=== PATIENT | female | born 1980 | race Caucasian/White ===

== ENCOUNTER 2017-03-17 13:28 | Emergency (ER) | payer SELFPAY ==
--- NOTE | 2017-03-17 14:39 | Emergency Department Report ---
Chief Complaint: Abdominal Pain Stated Complaint: ABD PAIN Time Seen by Provider: 03/17/17 14:37 - HPI History of Present Illness: pt states she has a hx of ulcers. pt c/o epigastric tenderness - ROS Review of Systems: + n/v - Exam Vital Signs: Vital Signs 03/17/17 14:30 Temperature 98.2 F Pulse Rate 75 Blood Pressure 162/116 O2 Sat by Pulse 100 Oximetry Physical Exam: abd soft, + epigastric tenderness MSE screening note: Focused history and physical exam performed. Due to findings the following was ordered: labs ED Disposition for MSE Condition: Stable Instructions: Abdominal Pain (ED)
[2017-03-17 15:04] LABS: Basophils % (Auto) 0.4 % (0.0-1.8); Eosinophils % (Auto) 2.3 % (0.0-4.3); Hematocrit 43.4 % (30.3-42.9); Hemoglobin 14.7 gm/dl (10.1-14.3); Mean Corpuscular HGB Conc 34 % (30-34); Mean Corpuscular Hemoglobin 29 pg (28-32); Mean Corpuscular Volume 85 fl (79-97); Platelet Count 180 K/mm3 (140-440); Red Blood Count 5.09 M/mm3 (3.65-5.03); White Blood Count 10.1 K/mm3 (4.5-11.0)
[2017-03-17 15:10] LABS: Albumin 4.3 g/dL (3.9-5); Bilirubin,Total 0.4 mg/dL (0.1-1.2); Calcium 9.3 mg/dL (8.4-10.2); Chloride 96.4 mmol/L (98-107); Potassium 3.8 mmol/L (3.6-5.0); Total Protein 8.7 g/dL (6.3-8.2)
[2017-03-18 01:31] VITALS: BP 180/117
--- NOTE | 2017-03-18 01:57 | Emergency Department Report ---
ED Abdominal Pain HPI - General Chief Complaint: Abdominal Pain Stated Complaint: ABD PAIN Time Seen by Provider: 03/17/17 14:37 Source: patient Mode of arrival: Ambulatory Limitations: No Limitations - History of Present Illness Initial Comments: 36 years old female coming today with cement complaint ABDOMINAL pain diffuse with distention. Last bowel movement was 7 days ago according to the patient she does have history of constipation. No nausea no vomiting no fever. MD Complaint: abdominal pain -: week(s) (1 week) Location: diffuse Severity: moderate Severity scale (0 -10): 5 Quality: fullness Associated Symptoms: denies other symptoms, constipation - Related Data Home Medications Medication Instructions Recorded Confirmed Last Taken Lisinopril [Zestril] 20 mg PO QDAY 05/04/13 05/04/13 05/04/13 08:00 Previous Rx's Medication Instructions Recorded Last Taken Type Aspirin [Aspirin BABY CHEW TAB] 81 mg PO ONCE #100 tab.chew 05/04/13 Unknown Rx Cyclobenzaprine [Flexeril 10mg] 10 mg PO TID PRN #30 tablet 08/16/14 Unknown Rx HYDROcodone/APAP 5-325 [[place] 1 each PO Q6HR PRN #20 tablet 08/16/14 Unknown Rx 5-325 mg TAB] Ibuprofen [Motrin] 600 mg PO Q8H PRN #50 tablet 08/16/14 Unknown Rx Lactulose 10 gm PO DAILY PRN #150 ml 03/18/17 Unknown Rx Allergies Allergy/AdvReac Type Severity Reaction Status Date / Time tree Allergy Itching Uncoded 08/16/14 12:28 ED Review of Systems ROS: Stated complaint: ABD PAIN Other details as noted in HPI Comment: All other systems reviewed and negative Constitutional: denies: chills, fever Respiratory: denies: cough, shortness of breath Cardiovascular: denies: chest pain Gastrointestinal: abdominal pain, constipation. denies: nausea, vomiting, diarrhea, hematemesis, melena, hematochezia ED Past Medical Hx - Past Medical History Hx Hypertension: Yes Hx CVA: No Hx Heart Attack/AMI: No - Surgical History Past Surgical History?: Yes Additional Surgical History: left knee replacement. abdominoplasty. - Social History Smoking Status: Current Every Day Smoker Substance Use Type: None - Medications Home Medications: Home Medications Medication Instructions Recorded Confirmed Last Taken Type Aspirin [Aspirin BABY CHEW TAB] 81 mg PO ONCE #100 tab.chew 05/04/13 Unknown Rx Lisinopril [Zestril] 20 mg PO QDAY 05/04/13 05/04/13 05/04/13 08:00 History Cyclobenzaprine [Flexeril 10mg] 10 mg PO TID PRN #30 tablet 08/16/14 Unknown Rx HYDROcodone/APAP 5-325 [[place] 1 each PO Q6HR PRN #20 tablet 08/16/14 Unknown Rx 5-325 mg TAB] Ibuprofen [Motrin] 600 mg PO Q8H PRN #50 tablet 08/16/14 Unknown Rx Lactulose 10 gm PO DAILY PRN #150 ml 03/18/17 Unknown Rx ED Physical Exam - General Limitations: No Limitations General appearance: alert, in no apparent distress - Neck Neck exam: Present: normal inspection, full ROM. Absent: tenderness - Respiratory Respiratory exam: Present: normal lung sounds bilaterally. Absent: wheezes, rales - Cardiovascular Cardiovascular Exam: Present: regular rate, normal rhythm, normal heart sounds - GI/Abdominal GI/Abdominal exam: Present: soft, distended. Absent: tenderness, guarding, rebound, rigid, normal bowel sounds, hyperactive bowel sounds, hypoactive bowel sounds, mass, bruit, pulsatile mass - Extremities Exam Extremities exam: Present: normal inspection - Neurological Exam Neurological exam: Present: alert, oriented X3, CN II-XII intact - Skin Skin exam: Present: warm, normal color ED Course Vital Signs 03/17/17 03/18/17 14:30 01:30 Temperature 98.2 F Pulse Rate 75 74 Respiratory 17 Rate Blood Pressure 162/116 Blood Pressure 180/117 [Right] O2 Sat by Pulse 100 99 Oximetry ED Medical Decision Making - Lab Data Result diagrams: 03/17/17 14:39 03/17/17 14:39 Critical care attestation.: If time is entered above; I have spent that time in minutes in the direct care of this critically ill patient, excluding procedure time. ED Disposition Clinical Impression: Abdominal pain, Constipation Disposition: DC-01 TO HOME OR SELFCARE Is pt being admited?: No Condition: Stable Instructions: Abdominal Pain (ED), Constipation (ED) Referrals: PRIMARY CARE,MD [Primary Care Provider] - 3-5 Days Forms: Work/School Release Form(ED)
[2017-03-18 02:14] LABS: Bilirubin,Urine NEG (Negative); Blood,Urine LG (Negative); Ketones,Urine NEG (Negative); Leukocyte Esterase,Urine TR (Negative); Mucus,Urine 2+ /HPF; Nitrite,Urine NEG (Negative); Urobilinogen,Urine < 2.0 mg/dL (<2.0)
--- NOTE | 2017-03-18 03:13 | XRay Report ---
FINAL REPORT EXAM: XR ABDOMEN 1V AP HISTORY: abdominal pain COMPARISON: None available. FINDINGS: AP views of the abdomen obtained. Gas scattered within non dilated bowl loops. No gross pathologic calcifications. Bony structures are grossly intact. IMPRESSION: Nonobstructive bowel gas pattern.
== END 2017-03-18 03:04 | disposition home or self-care (01) ==
LOC: ED 13:28
DX: K59.00 Constipation, unspecified (principal); I10 Essential (primary) hypertension; F17.210 Nicotine dependence, cigarettes, uncomplicated; Z91.09 Other allergy status, other than to drugs and biological substances
CPT/HCPCS: 36415; 74000; 80053; 81001; 83690; 84703; 85025; 99283

== ENCOUNTER 2017-10-06 09:24 | Emergency (ER) | payer SELFPAY ==
--- NOTE | 2017-10-06 10:14 | XRay Report ---
LEFT KNEE, 3 views: History: Left knee pain and swelling. Early osteoarthritic changes are suspected. No displaced fracture or large joint effusion. There appears to be dense material within the proximal tibial metaphysis along its lateral surface. The etiology of this is unclear. This may represent a previous surgical site please correlate with the patient's history. IMPRESSION: Mild degenerative changes. No acute process noted.
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
[2017-10-06 11:02] VITALS: BP 171/118
== END 2017-10-06 11:06 | disposition home or self-care (01) ==
LOC: ED 09:24
DX: L03.116 Cellulitis of left lower limb (principal); I10 Essential (primary) hypertension; F17.200 Nicotine dependence, unspecified, uncomplicated; F12.10 Cannabis abuse, uncomplicated; Z79.82 Long term (current) use of aspirin; Z91.048 Other nonmedicinal substance allergy status
CPT/HCPCS: 99283

== ENCOUNTER 2017-10-08 12:47 | Inpatient (IN) | payer MEDICAID ==
[2017-10-08 14:44] LABS: Basophils # (Auto) 0.1 K/mm3 (0.0-0.1); Basophils % (Auto) 0.4 % (0.0-1.8); Eosinophils # (Auto) 0.2 K/mm3 (0.0-0.4); Eosinophils % (Auto) 1.6 % (0.0-4.3); Hematocrit 40.1 % (30.3-42.9); Hemoglobin 13.4 gm/dl (10.1-14.3); Lymphocytes # (Auto) 1.3 K/mm3 (1.2-5.4); Lymphocytes % (Auto) 9.2 % (13.4-35.0); Mean Corpuscular HGB Conc 34 % (30-34); Mean Corpuscular Hemoglobin 28 pg (28-32); Mean Corpuscular Volume 84 fl (79-97); Monocytes # (Auto) 0.9 K/mm3 (0.0-0.8); Monocytes % (Auto) 6.5 % (0.0-7.3); Platelet Count 244 K/mm3 (140-440); Red Cell Distribution Width 13.2 % (13.2-15.2)
[2017-10-08] MEDS ORDERED: NACL 0.9% 1000 ML 2,000 ML IV ONE (16:08)
[2017-10-08] MEDS ORDERED: ROCEPHIN/NS 1 GM/50 ML 1 GM/50 ML BAG IV ONE (16:21)
[2017-10-08] MEDS ORDERED: ZOFRAN IV ONE (16:21)
[2017-10-08] MEDS ORDERED: BABY ASPIRIN PO ONE (16:25)
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
[2017-10-08] MEDS ORDERED: CATAPRES PO ONE (16:43)
[2017-10-08] MEDS ORDERED: BABY ASPIRIN ONE (16:56)
[2017-10-08] MEDS ORDERED: CATAPRES ONE (16:56)
[2017-10-08] MEDS ORDERED: ROCEPHIN IM ONE (16:56)
[2017-10-08] MEDS ORDERED: NACL 0.9% 1000 ML 1,000 ML ONE (16:56)
[2017-10-08] MEDS ORDERED: cefTRIAXone 1 GM in NACL 0.9% 20 ML IV ONE (18:00)
[2017-10-08] MEDS ORDERED: VANCOMYCIN/0.45 NS 1 GM/250 ML 1 GM/250 ML BAG IV SCH (18:00)
[2017-10-08 18:09] LABS: Bacteria,Urine 1+ /HPF (Negative); Bilirubin,Urine NEG (Negative); Blood,Urine NEG (Negative); Color,Urine Yellow (Yellow); Mucus,Urine FEW /HPF; Protein,Urine <15 mg/dL mg/dL (Negative)
[2017-10-08] MEDS: MORPHINE IV ONE (20:46)
[2017-10-08] MEDS ORDERED: MORPHINE IV ONE (21:00)
[2017-10-08] MEDS ORDERED: SODIUM CHLORIDE FLUSH SYRINGE 10 ML IV PRN (23:14)
[2017-10-08] MEDS ORDERED: TYLENOL PO PRN (23:14)
[2017-10-08] MEDS ORDERED: ZOFRAN IV PRN (23:14)
--- NOTE | 2017-10-08 23:14 | Event Note ---
Date: 10/08/17 See dictated H/p in reports L knee cellulitis
--- NOTE | 2017-10-08 23:14 | History and Physical Report ---
History of Present Illness Date of examination: 10/08/17 Date of admission: 10/08/17 16:25 Medications and Allergies Allergies Allergy/AdvReac Type Severity Reaction Status Date / Time tree Allergy Itching Uncoded 08/16/14 12:28 Home Medications Medication Instructions Recorded Confirmed Last Taken Type Ibuprofen [Motrin] 800 mg PO Q8HR PRN #25 tablet 10/06/17 10/08/17 Unknown Rx Sulfamethoxazole/Trimethoprim 1 each PO BID #14 tablet 10/06/17 10/08/17 Unknown Rx [Bactrim Ds Tablet] Active Meds: Active Medications Vancomycin HCl (Vancomycin/0.45 Ns 1 Gm/250 Ml) 1 gm in 250 mls @ 167.007 mls/ hr IV ONCE ROLY; Protocol Exam - Constitutional Vitals: Temp Pulse Resp BP Pulse Ox 98.2 F 80 28 H 126/96 99 10/08/17 19:34 10/08/17 19:01 10/08/17 19:34 10/08/17 19:34 10/08/17 19:01 Results - Labs CBC & Chem 7: 10/08/17 14:29 10/08/17 14:29 Labs: Laboratory Last Values WBC 13.8 K/mm3 (4.5-11.0) H 10/08/17 14:29 RBC 4.80 M/mm3 (3.65-5.03) 10/08/17 14:29 Hgb 13.4 gm/dl (10.1-14.3) 10/08/17 14:29 Hct 40.1 % (30.3-42.9) 10/08/17 14:29 MCV 84 fl (79-97) 10/08/17 14:29 MCH 28 pg (28-32) 10/08/17 14:29 MCHC 34 % (30-34) 10/08/17 14:29 RDW 13.2 % (13.2-15.2) 10/08/17 14:29 Plt Count 244 K/mm3 (140-440) 10/08/17 14:29 Lymph % (Auto) 9.2 % (13.4-35.0) L 10/08/17 14:29 [place] % (Auto) 6.5 % (0.0-7.3) 10/08/17 14:29 Eos % (Auto) 1.6 % (0.0-4.3) 10/08/17 14:29 Baso % (Auto) 0.4 % (0.0-1.8) 10/08/17 14: Lymph # 1.3 K/mm3 (1.2-5.4) 10/08/17 14: [place] # 0.9 K/mm3 (0.0-0.8) H 10/08/17 14: Eos # 0.2 K/mm3 (0.0-0.4) 10/08/17 14: Baso # 0.1 K/mm3 (0.0-0.1) 10/08/17 14: Seg Neutrophils % 82.3 % (40.0-70.0) H 10/08/17 14: Seg Neutrophils # 11.3 K/mm3 (1.8-7.7) H 10/08/17 14:29 ESR 65 mm/Hr (0-20) 10/08/17 16:32 Sodium 133 mmol/L (137-145) L 10/08/17 14:29 Potassium 3.9 mmol/L (3.6-5.0) 10/08/17 14: Chloride 92.0 mmol/L (98-107) L 10/08/17 14:29 Carbon Dioxide 26 mmol/L (22-30) 10/08/17 14:29 Anion Gap 19 mmol/L 10/08/17 14:29 BUN 9 mg/dL (7-17) 10/08/17 14:29 Creatinine 1.2 mg/dL (0.7-1.2) 10/08/17 14:29 Estimated GFR 50 ml/min 10/08/17 14:29 BUN/Creatinine Ratio 8 % 10/08/17 14: Glucose 142 mg/dL (65-100) H 10/08/17 14:29 Lactic Acid 1.00 mmol/L (0.7-2.0) 10/08/17 16:32 Calcium 9.0 mg/dL (8.4-10.2) 10/08/17 14:29 C-Reactive Protein 7.40 mg/dL (0.00-1.30) H 10/08/17 16:32 Urine Color Yellow (Yellow) 10/08/17 17:49 Urine Turbidity Clear (Clear) 10/08/17 17:49 Urine pH 6.0 (5.0-7.0) 10/08/17 17:49 Ur Specific [place] 1.021 (1.003-1.030) 10/08/17 17:49 Urine Protein <15 mg/dl mg/dL (Negative) 10/08/17 17:49 Urine Glucose (UA) Neg mg/dL (Negative) 10/08/17 17:49 Urine Ketones Neg mg/dL (Negative) 10/08/17 17:49 Urine Blood Neg (Negative) 10/08/17 17:49 Urine Nitrite Neg (Negative) 10/08/17 17:49 Urine Bilirubin Neg (Negative) 10/08/17 17:49 Urine Urobilinogen 4.0 mg/dL (<2.0) 10/08/17 17:49 Ur Leukocyte Esterase Neg (Negative) 10/08/17 17:49 Urine WBC (Auto) 2.0 /HPF (0.0-6.0) 10/08/17 17:49 Urine RBC (Auto) 2.0 /HPF (0.0-6.0) 10/08/17 17:49 U Epithel Cells (Auto) 3.0 /HPF (0-13.0) 10/08/17 17:49 Urine Bacteria (Auto) 1+ /HPF (Negative) 10/08/17 17:49 Urine Mucus Few /HPF 10/08/17 17:49
[2017-10-08] MEDS ORDERED: VANCOMYCIN PHARMACY TO DOSE IV SCH (23:45)
[2017-10-09] MEDS: UNASYN/NS 3 GM/100 ML 3 GM/100 ML BAG IV SCH ×5 (01:08→23:21)
[2017-10-09] MEDS: PERCOCET 5/325 PO PRN ×2 (01:38→21:07)
[2017-10-09] MEDS ORDERED: VANCOMYCIN 1,500 MG in NACL 0.9% 500 ML 500 ML IV SCH (02:00)
[2017-10-09] MEDS ORDERED: BENADRYL IV ONE (03:01)
[2017-10-09 07:29] LABS: Basophils % (Auto) 0.4 % (0.0-1.8); Eosinophils # (Auto) 0.2 K/mm3 (0.0-0.4); Eosinophils % (Auto) 1.8 % (0.0-4.3); Hemoglobin 11.2 gm/dl (10.1-14.3); Lymphocytes # (Auto) 1.3 K/mm3 (1.2-5.4); Lymphocytes % (Auto) 13.7 % (13.4-35.0); Mean Corpuscular HGB Conc 33 % (30-34); Mean Corpuscular Hemoglobin 28 pg (28-32); Mean Corpuscular Volume 85 fl (79-97); Monocytes # (Auto) 0.7 K/mm3 (0.0-0.8); Monocytes % (Auto) 7.8 % (0.0-7.3); Platelet Count 210 K/mm3 (140-440); Red Blood Count 4.01 M/mm3 (3.65-5.03)
[2017-10-09 07:33] LABS: Hematocrit 34.6 % (30.3-42.9)
[2017-10-09 07:41] LABS: Calcium 8.3 mg/dL (8.4-10.2)
[2017-10-09] MEDS ORDERED: VANCOMYCIN PHARMACY TO DOSE IV SCH ×2 (08:00→19:00)
[2017-10-09] MEDS ORDERED: MOTRIN PO PRN (09:00)
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
[2017-10-09] MEDS: ZESTRIL PO SCH (09:56)
[2017-10-09] MEDS: PEPCID PO SCH ×2 (09:56→21:07)
[2017-10-09] MEDS: HEPARIN SUB-Q SCH ×3 (09:57→21:06)
[2017-10-09] MEDS: MORPHINE IV PRN ×2 (09:57→15:51)
[2017-10-09] MEDS: HABITROL TD SCH (10:47)
[2017-10-09] MEDS: SODIUM CHLORIDE FLUSH SYRINGE 10 ML IV SCH (10:49)
[2017-10-09 11:24] LABS: Albumin 3.4 g/dL (3.9-5)
--- NOTE | 2017-10-09 16:23 | Progress Note ---
Assessment and Plan Assessment and plan: Left leg cellulitis - Patient is on IV antibiotics - ID consulted DVT prophylaxis Disposition - Possible discharge tomorrow with PO antibiotics History Interval history: Patient was seen and evaluated this morning, patient said her left knee erythema and pain subsiding Hospitalist Physical - Physical exam Narrative exam: Not in cardiopulmonary distress. The patient appeared well nourished and normally developed. Vital signs as documented. Head exam is unremarkable. No scleral icterus . Neck is without jugular venous distension, thyromegaly, or carotid bruits. Lungs are clear to auscultation. Cardiac exam reveals regular rate and Rhythm. First and second heart sounds normal. No murmurs, rubs or gallops. Abdominal exam reveals normal bowel sounds, no masses, no organomegaly and no aortic enlargement. Extremities erythema around the left knee, no effusion in the joint. DEPUTY MANAGER: Alert and oriented 3. No focal weakness. - Constitutional Vitals: Temp Pulse Resp BP Pulse Ox 98.7 F 129 H 20 177/120 99 10/09/17 08:40 10/09/17 08:40 10/09/17 15:51 10/09/17 09:56 10/09/17 08:40 Results - Labs CBC & Chem 7: 10/09/17 06:10 10/09/17 06:10 Labs: Laboratory Last Values WBC 9.3 K/mm3 (4.5-11.0) 10/09/17 06:10 RBC 4.01 M/mm3 (3.65-5.03) 10/09/17 06:10 Hgb 11.2 gm/dl (10.1-14.3) 10/09/17 06:10 Hct 34.6 % (30.3-42.9) 10/09/17 06:10 MCV 85 fl (79-97) 10/09/17 06:10 MCH 28 pg (28-32) 10/09/17 06:10 MCHC 33 % (30-34) 10/09/17 06:10 RDW 13.0 % (13.2-15.2) L 10/09/17 06:10 Plt Count 210 K/mm3 (140-440) 10/09/17 06:10 Lymph % (Auto) 13.7 % (13.4-35.0) 10/09/17 06:10 [place] % (Auto) 7.8 % (0.0-7.3) H 10/09/17 06:10 Eos % (Auto) 1.8 % (0.0-4.3) 10/09/17 06:10 Baso % (Auto) 0.4 % (0.0-1.8) 10/09/17 06:10 Lymph # 1.3 K/mm3 (1.2-5.4) 10/09/17 06:10 [place] # 0.7 K/mm3 (0.0-0.8) 10/09/17 06:10 Eos # 0.2 K/mm3 (0.0-0.4) 10/09/17 06:10 Baso # 0.0 K/mm3 (0.0-0.1) 10/09/17 06:10 Seg Neutrophils % 76.3 % (40.0-70.0) H 10/09/17 06:10 Seg Neutrophils # 7.1 K/mm3 (1.8-7.7) 10/09/17 06:10 ESR 65 mm/Hr (0-20) 10/08/17 16:32 Sodium 134 mmol/L (137-145) L 10/09/17 06:10 Potassium 4.2 mmol/L (3.6-5.0) 10/09/17 06:10 Chloride 93.0 mmol/L (98-107) L 10/09/17 06:10 Carbon Dioxide 25 mmol/L (22-30) 10/09/17 06:10 Anion Gap 20 mmol/L 10/09/17 06:10 BUN 9 mg/dL (7-17) 10/09/17 06:10 Creatinine 1.1 mg/dL (0.7-1.2) 10/09/17 06:10 Estimated GFR 55 ml/min 10/09/17 06:10 BUN/Creatinine Ratio 8 % 10/09/17 06:10 Glucose 91 mg/dL (65-100) 10/09/17 06:10 Hemoglobin A1c 5.7 % (4-6) 10/08/17 23:26 Lactic Acid 1.00 mmol/L (0.7-2.0) 10/08/17 16:32 Calcium 8.3 mg/dL (8.4-10.2) L 10/09/17 06:10 Total Bilirubin 0.50 mg/dL (0.1-1.2) 10/09/17 06:10 AST 12 units/L (5-40) 10/09/17 06:10 ALT 13 units/L (7-56) 10/09/17 06:10 Alkaline Phosphatase 72 units/L (35-129) 10/09/17 06:10 C-Reactive Protein 7.40 mg/dL (0.00-1.30) H 10/08/17 16:32 Total Protein 7.2 g/dL (6.3-8.2) 10/09/17 06:10 Albumin 3.4 g/dL (3.9-5) L 10/09/17 06:10 Albumin/Globulin Ratio 0.9 % 10/09/17 06:10 Urine Color Yellow (Yellow) 10/08/17 17:49 Urine Turbidity Clear (Clear) 10/08/17 17:49 Urine pH 6.0 (5.0-7.0) 10/08/17 17:49 Ur Specific [place] 1.021 (1.003-1.030) 10/08/17 17:49 Urine Protein <15 mg/dl mg/dL (Negative) 10/08/17 17:49 Urine Glucose (UA) Neg mg/dL (Negative) 10/08/17 17:49 Urine Ketones Neg mg/dL (Negative) 10/08/17 17:49 Urine Blood Neg (Negative) 10/08/17 17:49 Urine Nitrite Neg (Negative) 10/08/17 17:49 Urine Bilirubin Neg (Negative) 10/08/17 17:49 Urine Urobilinogen 4.0 mg/dL (<2.0) 10/08/17 17:49 Ur Leukocyte Esterase Neg (Negative) 10/08/17 17:49 Urine WBC (Auto) 2.0 /HPF (0.0-6.0) 10/08/17 17:49 Urine RBC (Auto) 2.0 /HPF (0.0-6.0) 10/08/17 17:49 U Epithel Cells (Auto) 3.0 /HPF (0-13.0) 10/08/17 17:49 Urine Bacteria (Auto) 1+ /HPF (Negative) 10/08/17 17:49 Urine Mucus Few /HPF 10/08/17 17:49
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
[2017-10-09] MEDS ORDERED: VANCOMYCIN VIAL 1,000 MG in NACL 0.9% 100 ML IV SCH (19:00)
[2017-10-09] MEDS: MORPHINE IV ONE (20:13)
[2017-10-09] MEDS ORDERED: VANCOMYCIN 2,000 MG in NACL 0.9% 500 ML 500 ML IV ONE (21:00)
--- NOTE | 2017-10-09 23:44 | XRay Report ---
FINAL REPORT PROCEDURE: XR KNEE 4+V LT TECHNIQUE: LEFT knee radiographs, 4 or more views, including AP, lateral, and oblique views. CPT 43746 HISTORY: left knee swelling erythema COMPARISON: No prior studies are available for comparison. FINDINGS: Fracture (s) and/or Dislocation(s): None . Alignment: Normal . Joint space(s): Mild narrowing of the joint spaces. Soft tissues: Mild soft tissue swelling over the patella. Bone mineralization: There is a area of sclerosis in the proximal lateral tibial metaphyseal region. Bone island in this region is suspected. The remaining mineralization is normal.. Foreign bodies: None . IMPRESSION: No evidence of an acute fracture or dislocation. Mild arthritis. Slight soft tissue swelling over the patella..
[2017-10-10] MEDS: SODIUM CHLORIDE FLUSH SYRINGE 10 ML IV SCH ×4 (02:09→23:57)
[2017-10-10] MEDS: MORPHINE IV PRN ×2 (05:43→16:58)
[2017-10-10] MEDS: UNASYN/NS 3 GM/100 ML 3 GM/100 ML BAG IV SCH ×3 (05:44→23:52)
[2017-10-10] MEDS: HEPARIN SUB-Q SCH ×3 (05:44→23:50)
[2017-10-10 05:54] LABS: Basophils % (Auto) 0.2 % (0.0-1.8); Eosinophils # (Auto) 0.2 K/mm3 (0.0-0.4); Hematocrit 35.4 % (30.3-42.9); Hemoglobin 12.2 gm/dl (10.1-14.3); Lymphocytes # (Auto) 1.3 K/mm3 (1.2-5.4); Lymphocytes % (Auto) 13.9 % (13.4-35.0); Mean Corpuscular HGB Conc 34 % (30-34); Mean Corpuscular Hemoglobin 29 pg (28-32); Mean Corpuscular Volume 83 fl (79-97); Monocytes # (Auto) 0.9 K/mm3 (0.0-0.8); Monocytes % (Auto) 9.3 % (0.0-7.3); Platelet Count 213 K/mm3 (140-440); Red Blood Count 4.25 M/mm3 (3.65-5.03); Red Cell Distribution Width 13.3 % (13.2-15.2)
[2017-10-10 06:21] LABS: BUN/Creatinine Ratio 10; Blood Urea Nitrogen 9 mg/dL (7-17); Hemolysis Index 7
[2017-10-10] MEDS: PEPCID PO SCH ×2 (09:51→23:46)
[2017-10-10] MEDS: ZESTRIL PO SCH (09:52)
[2017-10-10] MEDS: PERCOCET 5/325 PO PRN (09:55)
[2017-10-10] MEDS: HABITROL TD SCH (10:00)
--- NOTE | 2017-10-10 12:43 | Progress Note ---
Assessment and Plan Assessment and plan: Left leg cellulitis - Patient is on IV antibiotics - ID consulted ID ordered left knee x-ray, MRI of the left and orthopedics consult DVT prophylaxis Disposition - Possible discharge after orthopedics evaluation and MRI result. History Interval history: Patient was seen and evaluated this morning, patient said her left knee erythema and edema is getting better still she has some pain. Hospitalist Physical - Physical exam Narrative exam: Not in cardiopulmonary distress. The patient appeared well nourished and normally developed. Vital signs as documented. Head exam is unremarkable. No scleral icterus . Neck is without jugular venous distension, thyromegaly, or carotid bruits. Lungs are clear to auscultation. Cardiac exam reveals regular rate and Rhythm. First and second heart sounds normal. No murmurs, rubs or gallops. Abdominal exam reveals normal bowel sounds, no masses, no organomegaly and no aortic enlargement. Extremities erythema around the left knee, no effusion in the joint. GAME ENGINEER: Alert and oriented 3. No focal weakness. - Constitutional Vitals: Temp Pulse Resp BP Pulse Ox 98.8 F 98 H 20 136/91 98 10/10/17 08:19 10/10/17 09:52 10/10/17 08:19 10/10/17 09:52 10/10/17 08:19 Results - Labs CBC & Chem 7: 10/10/17 05:12 10/10/17 05:12 Labs: Laboratory Last Values WBC 9.1 K/mm3 (4.5-11.0) 10/10/17 05:12 RBC 4.25 M/mm3 (3.65-5.03) 10/10/17 05:12 Hgb 12.2 gm/dl (10.1-14.3) 10/10/17 05:12 Hct 35.4 % (30.3-42.9) 10/10/17 05:12 MCV 83 fl (79-97) 10/10/17 05:12 MCH 29 pg (28-32) 10/10/17 05:12 MCHC 34 % (30-34) 10/10/17 05:12 RDW 13.3 % (13.2-15.2) 10/10/17 05:12 Plt Count 213 K/mm3 (140-440) 10/10/17 05:12 Lymph % (Auto) 13.9 % (13.4-35.0) 10/10/17 05:12 [place] % (Auto) 9.3 % (0.0-7.3) H 10/10/17 05:12 Eos % (Auto) 2.0 % (0.0-4.3) 10/10/17 05:12 Baso % (Auto) 0.2 % (0.0-1.8) 10/10/17 05:12 Lymph # 1.3 K/mm3 (1.2-5.4) 10/10/17 05:12 [place] # 0.9 K/mm3 (0.0-0.8) H 10/10/17 05:12 Eos # 0.2 K/mm3 (0.0-0.4) 10/10/17 05:12 Baso # 0.0 K/mm3 (0.0-0.1) 10/10/17 05:12 Seg Neutrophils % 74.6 % (40.0-70.0) H 10/10/17 05:12 Seg Neutrophils # 6.8 K/mm3 (1.8-7.7) 10/10/17 05:12 ESR 65 mm/Hr (0-20) 10/08/17 16:32 Sodium 136 mmol/L (137-145) L 10/10/17 05:12 Potassium 4.5 mmol/L (3.6-5.0) 10/10/17 05:12 Chloride 95.9 mmol/L (98-107) L 10/10/17 05:12 Carbon Dioxide 24 mmol/L (22-30) 10/10/17 05:12 Anion Gap 21 mmol/L 10/10/17 05:12 BUN 9 mg/dL (7-17) 10/10/17 05:12 Creatinine 0.9 mg/dL (0.7-1.2) 10/10/17 05:12 Estimated GFR > 60 ml/min 10/10/17 05:12 BUN/Creatinine Ratio 10 % 10/10/17 05:12 Glucose 103 mg/dL (65-100) H 10/10/17 05:12 Hemoglobin A1c 5.7 % (4-6) 10/08/17 23:26 Lactic Acid 1.00 mmol/L (0.7-2.0) 10/08/17 16:32 Calcium 9.0 mg/dL (8.4-10.2) 10/10/17 05:12 Total Bilirubin 0.50 mg/dL (0.1-1.2) 10/09/17 06:10 AST 12 units/L (5-40) 10/09/17 06:10 ALT 13 units/L (7-56) 10/09/17 06:10 Alkaline Phosphatase 72 units/L (35-129) 10/09/17 06:10 C-Reactive Protein 9.00 mg/dL (0.00-1.30) H 10/09/17 19:56 Total Protein 7.2 g/dL (6.3-8.2) 10/09/17 06:10 Albumin 3.4 g/dL (3.9-5) L 10/09/17 06:10 Albumin/Globulin Ratio 0.9 % 10/09/17 06:10 Urine Color Yellow (Yellow) 10/08/17 17:49 Urine Turbidity Clear (Clear) 10/08/17 17:49 Urine pH 6.0 (5.0-7.0) 10/08/17 17:49 Ur Specific [place] 1.021 (1.003-1.030) 10/08/17 17:49 Urine Protein <15 mg/dl mg/dL (Negative) 10/08/17 17:49 Urine Glucose (UA) Neg mg/dL (Negative) 10/08/17 17:49 Urine Ketones Neg mg/dL (Negative) 10/08/17 17:49 Urine Blood Neg (Negative) 10/08/17 17:49 Urine Nitrite Neg (Negative) 10/08/17 17:49 Urine Bilirubin Neg (Negative) 10/08/17 17:49 Urine Urobilinogen 4.0 mg/dL (<2.0) 10/08/17 17:49 Ur Leukocyte Esterase Neg (Negative) 10/08/17 17:49 Urine WBC (Auto) 2.0 /HPF (0.0-6.0) 10/08/17 17:49 Urine RBC (Auto) 2.0 /HPF (0.0-6.0) 10/08/17 17:49 U Epithel Cells (Auto) 3.0 /HPF (0-13.0) 10/08/17 17:49 Urine Bacteria (Auto) 1+ /HPF (Negative) 10/08/17 17:49 Urine Mucus Few /HPF 10/08/17 17:49
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
[2017-10-10] MEDS ORDERED: VANCOMYCIN VIAL 1,000 MG in NACL 0.9% 100 ML IV SCH (14:00)
[2017-10-10] MEDS ORDERED: VANCOMYCIN PHARMACY TO DOSE IV SCH (14:00)
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
[2017-10-10] MEDS: VANCOMYCIN 1,500 MG in NACL 0.9% 500 ML 500 ML IV SCH (18:02)
[2017-10-10] MEDS ORDERED: BENADRYL IV PRN (19:23)
[2017-10-10] MEDS: DILAUDID IV PRN (23:47)
[2017-10-11] MEDS: VANCOMYCIN 1,500 MG in NACL 0.9% 500 ML 500 ML IV SCH (02:45)
[2017-10-11] MEDS ORDERED: ATIVAN IV PRN (05:19)
[2017-10-11] MEDS: UNASYN/NS 3 GM/100 ML 3 GM/100 ML BAG IV SCH ×2 (05:34→10:22)
[2017-10-11] MEDS: HEPARIN SUB-Q SCH (05:44)
[2017-10-11] MEDS: DILAUDID IV PRN (08:38)
[2017-10-11 10:07] VITALS: BP 139/86
[2017-10-11] MEDS: ZESTRIL PO SCH (10:07)
[2017-10-11] MEDS: HABITROL TD SCH (10:08)
[2017-10-11] MEDS: PEPCID PO SCH (10:08)
[2017-10-11] MEDS: SODIUM CHLORIDE FLUSH SYRINGE 10 ML IV SCH (10:10)
--- NOTE | 2017-10-11 10:54 | Discharge Summary ---
Providers - Providers Date of Admission: 10/08/17 16:25 Date of discharge: 10/11/17 Attending physician: TRACE ROTH MD 10/08/17 23:18 Consult to Physician [CONS] Routine Consulting Provider: XAVIER TRIPP Reason For Exam: Cellulitis Notified:: yes 10/09/17 18:56 Consult to Physician [CONS] Routine Comment: Consulting Provider: JOVAN CRUZ Physician Instructions: Reason For Exam: cellulitis of the left knee ? hardware infection Primary care physician: PRODUCTION INTERN Hospitalization Reason for admission: Cellulitis Condition: Stable Disposition: [id number] TO HOME OR SELFCARE Time spent for discharge: 31 minutes - Discharge Diagnoses (1) Cellulitis of left anterior lower leg Status: Acute (2) Failure of outpatient treatment Status: Acute (3) Cellulitis of knee, left Status: Acute Core Measure Documentation - Palliative Care Palliative Care/ Comfort Measures: Not Applicable - Core Measures Any of the following diagnoses?: none Exam - Physical Exam Narrative exam: Not in cardiopulmonary distress. The patient appeared well nourished and normally developed. Vital signs as documented. Head exam is unremarkable. No scleral icterus . Neck is without jugular venous distension, thyromegaly, or carotid bruits. Lungs are clear to auscultation. Cardiac exam reveals regular rate and Rhythm. First and second heart sounds normal. No murmurs, rubs or gallops. Abdominal exam reveals normal bowel sounds, no masses, no organomegaly and no aortic enlargement. Extremities erythema around the left knee, no effusion in the joint. TRIAGE TECHNICIAN: Alert and oriented 3. No focal weakness. - Constitutional Vitals: Temp Pulse Resp BP Pulse Ox 99.4 F 109 H 20 139/86 96 10/11/17 08:44 10/11/17 08:44 10/11/17 08:44 10/11/17 10:07 10/11/17 08:44 Plan Additional Instructions: Please follow @[facility] in 1-2 weeks Follow up with: CHEN BARRERA MD [Primary Care Provider] - 3-5 Days Prescriptions: Amoxicillin/K Clav Tab [Augmentin 875 mg] 1 tab PO Q12HR #14 tab oxyCODONE /ACETAMINOPHEN [Percocet 5/325 mg] 1 tab PO Q6HR PRN #12 tablet PRN Reason: Pain
== END 2017-10-11 12:50 | disposition home or self-care (01) | DRG 872 ==
LOC: ED 12:47 → 3A 16:25
PROVIDERS: ADMIT Internal Medicine; ATTEND Internal Medicine
DX: A41.9 Sepsis, unspecified organism (principal); L03.116 Cellulitis of left lower limb; Z88.8 Allergy status to other drugs, medicaments and biological substances; Z96.652 Presence of left artificial knee joint; F17.200 Nicotine dependence, unspecified, uncomplicated; E86.0 Dehydration
CPT/HCPCS: 36415; 80048; 80053; 81001; 82140; 83036; 85025; 85652; 86140; 87040; 96374; 99406; J0295; J0696; J1170; J1200; J1644; J2060; J2270; J3370; J7030; J7040

== ENCOUNTER 2018-01-22 11:00 | Outpatient (CLI) | payer MEDICAID | END 2018-01-22 11:01 | disposition home or self-care (01) | LOC: SLR 11:00 | PROVIDERS: ATTEND Internal Medicine | DX: G47.33 Obstructive sleep apnea (adult) (pediatric) (principal); F17.210 Nicotine dependence, cigarettes, uncomplicated; M19.90 Unspecified osteoarthritis, unspecified site; I10 Essential (primary) hypertension; Z78.9 Other specified health status | CPT/HCPCS: 95810 ==

== ENCOUNTER 2019-01-20 08:22 | Outpatient (CLI) | payer MEDICAID ==
[2019-01-20 10:24] LABS: Hematocrit 36.1 % (30.3-42.9); Hemoglobin 12.1 gm/dl (10.1-14.3); Mean Corpuscular HGB Conc 34 % (30-34); Mean Corpuscular Volume 84 fl (79-97); Platelet Count 213 K/mm3 (140-440); Red Cell Distribution Width 12.6 % (13.2-15.2)
[2019-01-20 10:49] LABS: Alanine Aminotransferase 9 units/L (7-56); Albumin 3.9 g/dL (3.9-5); BUN/Creatinine Ratio 14; Blood Urea Nitrogen 13 mg/dL (7-17); Hemolysis Index 0; LDL Cholesterol,Direct 146 mg/dL (50-130)
[2019-01-20 10:57] LABS: Erythrocyte Sedimentation Rate 68 mm/Hr (0-20)
[2019-01-20 11:21] LABS: Chol/HDL Ratio 4.89 %; HDL Cholesterol 38 mg/dL (40-59)
[2019-02-26 13:04] LABS: Vitamin D, 25-OH, D2 SEE SCANNED RESULT
== END 2019-01-20 08:23 | disposition home or self-care (01) ==
LOC: LAB 08:22
PROVIDERS: ATTEND Internal Medicine
DX: Z13.21 Encounter for screening for nutritional disorder (principal); Z13.1 Encounter for screening for diabetes mellitus; E78.5 Hyperlipidemia, unspecified; M13.0 Polyarthritis, unspecified; I10 Essential (primary) hypertension
CPT/HCPCS: 36415; 80053; 80061; 82607; 83036; 84443; 85027; 85652; 86140; 87806

== ENCOUNTER 2019-02-09 08:27 | Outpatient (CLI) | payer MEDICAID ==
[2019-02-12 22:11] LABS: ANA Screen, IFA Negative (Negative)
== END 2019-02-09 08:28 | disposition home or self-care (01) ==
LOC: LAB 08:27
PROVIDERS: ATTEND Internal Medicine
DX: M35.9 Systemic involvement of connective tissue, unspecified (principal); M13.0 Polyarthritis, unspecified; I10 Essential (primary) hypertension
CPT/HCPCS: 36415; 82306; 86038; 86200; 86235; 86618

== ENCOUNTER 2019-10-05 10:56 | Outpatient (CLI) | payer MEDICAID ==
[2019-10-05 11:18] LABS: Basophils % (Auto) 0.7 % (0.0-1.8); Eosinophils # (Auto) 0.2 K/mm3 (0.0-0.4); Eosinophils % (Auto) 3.3 % (0.0-4.3); Hematocrit 39.3 % (30.3-42.9); Hemoglobin 13.3 gm/dl (10.1-14.3); Lymphocytes # (Auto) 0.9 K/mm3 (1.2-5.4); Lymphocytes % (Auto) 15.3 % (13.4-35.0); Mean Corpuscular HGB Conc 34 % (30-34); Mean Corpuscular Volume 85 fl (79-97); Monocytes # (Auto) 0.5 K/mm3 (0.0-0.8); Monocytes % (Auto) 8.1 % (0.0-7.3); Platelet Count 200 K/mm3 (140-440); Red Blood Count 4.62 M/mm3 (3.65-5.03); Red Cell Distribution Width 13.2 % (13.2-15.2)
[2019-10-05 11:42] LABS: Alanine Aminotransferase 11 units/L (7-56); Albumin 4.4 g/dL (3.9-5); Iron 83 ug/dL (37-170)
[2019-10-05 12:19] LABS: Bilirubin,Direct < 0.2 mg/dL (0-0.2)
[2019-10-08 16:03] LABS: Vitamin D, 25-OH, D2 21 ng/mL
== END 2019-10-05 10:57 | disposition home or self-care (01) ==
LOC: LAB 10:56
PROVIDERS: ATTEND Internal Medicine
DX: E55.9 Vitamin D deficiency, unspecified (principal); K76.89 Other specified diseases of liver; D64.9 Anemia, unspecified
CPT/HCPCS: 36415; 80076; 82306; 82728; 83540; 85025